=== PATIENT | female | born 1995 ===

== ENCOUNTER 2017-03-06 18:20 | Emergency (ER) | payer OTHER ==
[2017-03-06 19:18] VITALS: BP 110/74; PULSE 97; RESP 18; TEMP 97.9; O2SAT 99
--- NOTE | 2017-03-06 20:09 | ED PDOC ---
Arrival/HPI - General Chief Complaint: Eye Problem Time Seen by Provider: 03/06/17 19:55 Historian: Patient, Parent - History of Present Illness Time/Duration: Other (2 hours) Symptom Onset: Sudden Symptom Course: Improving Severity Level: Mild Associated Symptoms (Text): 03/06/17 20:07 Patient was at work approximately 2 hours prior to arrival when some hot cooking oil splashed up into her right eye. No visual disturbance. She does not wear glasses or contacts. There is no burn on the upper or lower lid. Past Medical History - Infectious Disease Hx of Infectious Diseases: None - Psychiatric Hx Substance Use: No Family/Social History - Physician Review Nursing Documentation Reviewed: Yes Family/Social History: Unknown Family HX Smoking Status: Never Smoked Hx Alcohol Use: No Hx Substance Use: No Allergies/Home Meds Allergies/Adverse Reactions: Allergies No Known Allergies Allergy (Verified 03/06/17 19:17) Review of Systems - Physician Review All systems were reviewed & negative as marked: Yes Physical Exam Vital Signs Temp Pulse Resp BP Pulse Ox 03/06/17 19:13 97.9 F 97 H 18 110/74 99 Temperature: Afebrile Blood Pressure: Normal Pulse: Regular Respiratory Rate: Normal Appearance: Positive for: Well-Appearing, Non-Toxic, Uncomfortable Pain Distress: Mild Mental Status: Positive for: Alert and Oriented X 3 - Systems Exam Pupils: Present: PERRL Extroacular Muscles: Present: EOMI Conjunctiva: Present: Injected, Other (Fluorescein stain was taken up on the sclera inferior to the cornea at 6:00. The cornea was spared. Markedly improved after Alcaine drops.) Disposition/Present on Arrival - Present on Arrival Any Indicators Present on Arrival: No History of DVT/PE: No History of Uncontrolled Diabetes: No Urinary Catheter: No History of Decub. Ulcer: No History Surgical Site Infection Following: None - Disposition Have Diagnosis and Disposition been Completed?: Yes Diagnosis: Burn of sclera of right eye Disposition: HOME/ ROUTINE Disposition Time: 20:09 Patient Plan: Discharge Condition: IMPROVED Discharge Instructions (ExitCare): [facility] (ED) Prescriptions: Gentamicin Sulfate 3.5 gm RIGHTEYE Q6 #1 oint...g. Referrals: Robb Chi [Staff Provider] - Follow up with primary Forms: [employer] (Irish), WORK NOTE
== END 2017-03-06 20:28 | disposition home or self-care (01) ==
LOC: ED 18:20
DX: T26.31XA Burns of other specified parts of right eye and adnexa, initial encounter (principal); X10.2XXA Contact with fats and cooking oils, initial encounter; Y93.G3 Activity, cooking and baking

== ENCOUNTER 2017-06-06 03:19 | Emergency (ER) | payer SELFPAY ==
[2017-06-06 03:32] VITALS: RESP 18; TEMP 97.7
[2017-06-06] MEDS ORDERED: Sodium Chloride 0.9% 1,000 ML IV STA (03:51)
--- NOTE | 2017-06-06 04:02 | ED PDOC ---
Arrival/HPI - General Chief Complaint: Abdominal Pain Time Seen by Provider: 06/06/17 03:48 Historian: Patient - History of Present Illness Narrative History of Present Illness (Text): 06/06/17 03:53 22 year old female, with no significant past medical history, presents to the emergency department complaining of recurrent of episodes of vomiting associated with abdominal cramping that began this morning. Patient states she had eaten chicken prior. Some loose bowel movement noted. Patient states she had diarrhea a day earlier. Patient denies any fever, chills, chest pain, shortness of breath, nausea, urinary symptoms, back pain, neck pain, headache, dizziness, or any other complaints. Time/Duration: Other (this morning ) Symptom Onset: Gradual Symptom Course: Unchanged Quality: Cramping Activities at Onset: Light Context: Home Past Medical History - Provider Review Nursing Documentation Reviewed: Yes - Infectious Disease Hx of Infectious Diseases: None - Psychiatric Hx Substance Use: No Family/Social History - Physician Review Nursing Documentation Reviewed: Yes Family/Social History: No Known Family HX Smoking Status: Never Smoked Hx Alcohol Use: No Hx Substance Use: No Allergies/Home Meds Allergies/Adverse Reactions: Allergies No Known Allergies Allergy (Verified 03/06/17 19:17) Review of Systems - Physician Review All systems were reviewed & negative as marked: Yes - Review of Systems Constitutional: absent: Fevers, Other (Chills) Respiratory: absent: SOB Cardiovascular: absent: Chest Pain Gastrointestinal: Abdominal Pain (cramping), Diarrhea, Vomiting. absent: Nausea Genitourinary Female: absent: Dysuria, Frequency, Hematuria Musculoskeletal: absent: Back Pain, Neck Pain Neurological: absent: Headache, Dizziness Physical Exam Vital Signs Reviewed: Yes Vital Signs Temp Pulse Resp BP Pulse Ox 06/06/17 03:27 97.7 F 78 18 96/84 L 99 Temperature: Afebrile Blood Pressure: Normal Pulse: Regular Respiratory Rate: Normal Appearance: Positive for: Well-Appearing, Non-Toxic, Comfortable Pain Distress: None Mental Status: Positive for: Alert and Oriented X 3 - Systems Exam Head: Present: Atraumatic, Normocephalic Pupils: Present: PERRL Extroacular Muscles: Present: EOMI Conjunctiva: Present: Normal Mouth: Present: Moist Mucous Membranes Neck: Present: Normal Range of Motion Respiratory/Chest: Present: Clear to Auscultation, Good Air Exchange. No: Respiratory Distress, Accessory Muscle Use Cardiovascular: Present: Regular Rate and Rhythm, Normal S1, S2. No: Murmurs Abdomen: Present: Normal Bowel Sounds, Other (Soft). No: Tenderness, Distention , Peritoneal Signs Back: Present: Normal Inspection Upper Extremity: Present: Normal Inspection. No: Cyanosis, Edema Lower Extremity: Present: Normal Inspection. No: Edema Neurological: Present: GCS=15, CN II-XII Intact, Speech Normal Skin: Present: Warm, Dry, Normal Color. No: Rashes Psychiatric: Present: Alert, Oriented x 3, Normal Insight, Normal Concentration Medical Decision Making ED Course and Treatment: 06/06/17 03:50 Impression: 22 year old female presents complaining of recurrent vomiting associated with abdominal cramping that began this morning. Patient also reports diarrhea a day earlier. Plan: -- Labs -- Pepcid, IV Fluids, Zofran Inj -- HCG, Qualit. Urinalysis -- Reassess and disposition Progress Notes: 06/06/17 06:12 On re-evaluation, patient feels better and is in no acute distress. I have discussed the results and plan with the patient, who expresses understanding. Patient in agreement with plan to be discharged home. Patient is stable for discharge. Patient was instructed to follow up with physician or return if symptoms worsen or new concerning symptoms arise. - Lab Interpretations Lab Results: 06/06/17 03:50 06/06/17 03:50 Lab Results 06/06/17 03:50: WBC 12.1 H, RBC 4.89, Hgb 14.4, Hct 43.0, MCV 87.9, MCH 29.4, MCHC 33.5, RDW 13.4, Plt Count 264, MPV 10.8 06/06/17 03:50: Sodium 143, Potassium 3.9, Chloride 104, Carbon Dioxide 25, Anion Gap 18, BUN 15, Creatinine 0.6 L, Est GFR ( Amer) > 60, Est GFR ( Non-Af Amer) > 60, Random Glucose 131 H, Calcium 9.9, Total Bilirubin 0.7, AST 35, ALT 22, Alkaline Phosphatase 89, Total Protein 8.7 H, Albumin 4.9 H, Globulin 3.8, Albumin/Globulin Ratio 1.3, Lipase 110 I have reviewed the lab results: Yes - Medication Orders Current Medication Orders: Discontinued Medications Famotidine (Pepcid) 20 mg IVP STAT STA Stop: 06/06/17 03:52 Sodium Chloride (Sodium Chloride 0.9%) 1,000 mls @ 999 mls/hr IV .Q1H1M STA Stop: 06/06/17 04:51 Last Admin: 06/06/17 04:05 Dose: 999 mls/hr eMAR Start Stop Document 06/06/17 04:05 ARYAN (Rec: 06/06/17 05:44 ARYAN [id number]) Intravenous Solution Start Date 06/06/17 Start Time 04:05 End Date 06/06/17 End time 05:06 Total Infusion Time 61 Ondansetron HCl (Zofran Inj) 4 mg IVP ONCE ONE Stop: 06/06/17 03:52 - Scribe Statement The provider has reviewed the documentation as recorded by the Renettaibsukhdev Tovar Provider Scribe Attestation: All medical record entries made by the Scribe were at my direction and personally dictated by me. I have reviewed the chart and agree that the record accurately reflects my personal performance of the history, physical exam, medical decision making, and the department course for this patient. I have also personally directed, reviewed, and agree with the discharge instructions and disposition. Disposition/Present on Arrival - Present on Arrival Any Indicators Present on Arrival: No History of DVT/PE: No History of Uncontrolled Diabetes: No Urinary Catheter: No History of Decub. Ulcer: No History Surgical Site Infection Following: None - Disposition Have Diagnosis and Disposition been Completed?: Yes Diagnosis: Gastroenteritis Disposition: HOME/ ROUTINE Disposition Time: 06:09 Patient Plan: Discharge Patient Problems: Current Active Problems Problem Status Onset Gastroenteritis Acute Condition: GOOD Discharge Instructions (ExitCare): Gastroenteritis (ED) Additional Instructions: Drink small amounts of liquids at a time/advance diet slowly as tolerated/take meds as prescribed/follow up with your doctor this week/any recurrent worsening symptoms return to the emergency room Prescriptions: Ondansetron [Zofran Odt] 4 mg PO Q6 PRN #12 odt PRN Reason: Nausea/Vomiting Forms: [employer] (formerly [employer]) [employer] (Maori)
[2017-06-06 04:10] LABS: HEMOGLOBIN 14.4 g/dL (12.0-16.0); MEAN CELL VOLUME 87.9 fl (80.0-105.0); MEAN CORPUSCULAR HEMOGLOBIN 29.4 pg (25.0-35.0); MEAN CORPUSCULAR HGB CONC 33.5 g/dl (31.0-37.0); MEAN PLATELET VOLUME 10.8 fl (7.0-11.0); RBC 4.89 10^6/uL (3.5-6.1); RED CELL DISTRIBUTION WIDTH 13.4 % (11.5-14.5); WHITE BLOOD COUNT 12.1 10^3/ul (4.5-11.0)
[2017-06-06 05:25] LABS: ALB/GLOB RATIO 1.3 (1.1-1.8); ALBUMIN 4.9 g/dL (3.0-4.8); ALT/SGPT 22 U/L (7-56); AST/SGOT 35 U/L (14-36); BLOOD UREA NITROGEN 15 mg/dL (7-21); CALCIUM 9.9 mg/dL (8.4-10.5); GFR AFRICAN-AMERICAN > 60; GFR NON-AFRICAN AMERICAN > 60; LIPASE 110 U/L (23-300)
[2017-06-06 06:39] VITALS: O2SAT 100
[2017-06-06 06:41] VITALS: BP 110/70; PULSE 77
== END 2017-06-06 06:30 | disposition home or self-care (01) ==
LOC: ED 03:19
DX: K52.9 Noninfective gastroenteritis and colitis, unspecified (principal)
CPT/HCPCS: 80053; 83690; 85027; 96360; 99284; J7040